=== PATIENT | male | born 1950 | race Caucasian/White ===

== ENCOUNTER 2016-04-19 08:54 | Day surgery (SDC) | payer MEDICARE, OTHER ==
[2016-04-19] VITALS (19 sets, daily range): BP systolic 125–152; BP diastolic 59–93; PULSE 79–106; RESP 16–24; Ht 180.3 cm; Wt 94.4 kg
[~2016-04-19] VITALS: Ht 180.3 cm; Wt 94.4 kg
[~2016-04-19 08:54] MED LIST: DEXAMETHASONE 4 MG/ML 1 ML INJ ONE; FENTAnyl 50 MCG/ML VIAL ONE; GLYCOPYRROLATE 0.4 MG INJ ONE; LIDOCAINE 2% (SDV) 5 ML INJ ONE; MIDAZOLAM 1 MG/ML 2 ML INJ ONE; NEOSTIGMINE 3 MG/3 ML SYRINGE ONE; ONDANSETRON 4 MG INJ ONE; PROPOFOL 20 ML ONE; ROCURONIUM 50 MG INJ ONE
[2016-04-19] MEDS ORDERED: hydrALAzine 20 MG INJ IV PRN (09:00)
[2016-04-19] MEDS ORDERED: MIDAZOLAM 1 MG/ML 2 ML INJ IV PRN (09:00)
[2016-04-19] MEDS ORDERED: LABETALOL HCL 20MG INJ IV PRN (09:00)
[2016-04-19] MEDS ORDERED: HYDROmorphONE (0.2 MG/ML) 10ML SYG IV PRN ×3 (09:00)
[2016-04-19] MEDS ORDERED: EPHEDrine SULFATE 50 MG/5 ML SYG IV PRN (09:00)
[2016-04-19] MEDS ORDERED: DIPHENHYDRAMINE 50 MG INJ IV PRN (09:00)
[2016-04-19] MEDS ORDERED: FENTAnyl 50 MCG/ML VIAL IV PRN ×2 (09:00)
[2016-04-19] MEDS ORDERED: MEPERIDINE 25 MG INJ IV PRN (09:00)
[2016-04-19] MEDS ORDERED: OXYCODONE/ACETAMINOPHEN (5/325) TAB PO PRN ×2 (09:00)
[2016-04-19] MEDS ORDERED: ATROPINE 1 MG/10 ML SYRINGE IV PRN (09:00)
[2016-04-19] MEDS ORDERED: ONDANSETRON 4 MG INJ IV PRN ×2 (09:00→16:30)
[2016-04-19] MEDS ORDERED: morphine (1 MG/ML) 10ML SYRINGE IV PRN ×3 (09:00)
[2016-04-19] MEDS ORDERED: ROPIVACAINE 0.5 % 30 ML VIAL ONE ×2 (10:08→12:17)
[2016-04-19] MEDS ORDERED: LIDOCAINE 2%/EPI 30 ML INJ ONE (10:08)
[2016-04-19 10:37] LABS: ADD SCAN DIFF NO
[2016-04-19] MEDS ORDERED: ATOR40TA68 PO (10:42)
[2016-04-19] MEDS ORDERED: VALS1TAB76 PO (10:42)
[2016-04-19 10:50] LABS: ADD UMIC NO; URINE BILIRUBIN (Dip) NEGATIVE (NEGATIVE); URINE BLOOD (Dip) NEGATIVE (NEGATIVE); URINE COLOR LT. YELLOW (YELLOW); URINE GLUCOSE (Dip) NEGATIVE (NEGATIVE); URINE KETONES (Dip) NEGATIVE (NEGATIVE); URINE LEUKOCYTE ESTERASE (Dip) NEGATIVE (NEGATIVE); URINE NITRITE (Dip) NEGATIVE (NEGATIVE); URINE TOTAL PROTEIN (Dip) NEGATIVE (NEGATIVE); URINE UROBILINOGEN (Dip) 0.2 E.U./dL (0.1-1.0)
[2016-04-19 10:51] LABS: BASOPHILS % 0.9 % (0.0-2.0); EOSINOPHILS # 0.1 10^3/ul (0.0-0.5); EOSINOPHILS % 1.1 % (0.0-7.0); HEMATOCRIT 44.6 % (42.0-52.0); HEMOGLOBIN 14.9 g/dl (14.0-18.0); LYMPHOCYTES # 1.5 10^3/ul (0.8-2.9); LYMPHOCYTES % 33.7 % (15.0-51.0); MEAN CORPUSCULAR HEMOGLOBIN 31.8 pg (29.0-33.0); MEAN CORPUSCULAR HGB CONC 33.4 g/dl (32.0-37.0); MEAN CORPUSCULAR VOLUME 95.3 fl (82.0-101.0); MEAN PLATELET VOLUME 10.8 fl (7.4-10.4); MONOCYTE # 0.5 10^3/ul (0.3-0.9); MONOCYTES % 11.2 % (0.0-11.0); NEUTROPHIL # 2.4 10^3/ul (1.6-7.5); NEUTROPHILS % 52.9 % (39.0-77.0); PLATELET COUNT 246 10^3/UL (140-415); RED BLOOD COUNT 4.68 10^6/ul (4.70-6.10); RED CELL DISTRIBUTION WIDTH 12.4 % (11.5-14.5); WHITE BLOOD COUNT 4.5 10^3/ul (4.8-10.8)
[2016-04-19 11:16] LABS: ALBUMIN 4.4 g/dl (3.3-4.9)
--- NOTE | 2016-04-19 11:16 | HPN ---
Date/Time of Note Date/Time of Note DATE: 04/19/16 TIME: 11:16 Interval H&P Admission Note Pt. seen H&P reviewed: No system changes JACOB YOUSIF MD Apr 19, 2016 11:16
[2016-04-19 11:19] LABS: ALBUMIN/GLOBULIN RATIO 1.57; BILIRUBIN,INDIRECT 0.3 mg/dl (0-1.1); BILIRUBIN,TOTAL 0.3 mg/dl (0.2-1.3); CALCIUM 9.7 mg/dl (8.4-10.2); CREATININE 0.76 mg/dl (0.61-1.24); TOTAL PROTEIN 7.2 g/dl (6.1-8.1)
[2016-04-19] MEDS ORDERED: POVIDONE IODINE 10% 28.4 GM OINT ONE (12:18)
[2016-04-19] MEDS ORDERED: LABETALOL HCL 20MG INJ ONE (12:34)
[2016-04-19] MEDS ORDERED: THROMBIN 5000 UNIT VIAL ONE (12:39)
[2016-04-19] MEDS ORDERED: CA CHLORIDE 10% 10 ML SYRINGE ONE (12:39)
[2016-04-19] MEDS ORDERED: POLYMYXIN/BACITRACIN 1L IRRIG IRR ONE (13:20)
[2016-04-19] MEDS ORDERED: CEFAZOLIN 1 GM INJ IV SCH (16:30)
[2016-04-19] MEDS ORDERED: DIPHENHYDRAMINE 25 MG CAP PO PRN (16:30)
[2016-04-19] MEDS ORDERED: morphine 10 MG INJ IV PRN (16:30)
[2016-04-19] MEDS ORDERED: BISACODYL 10 MG SUPP PR PRN (16:30)
[2016-04-19] MEDS ORDERED: HYDROmorphONE 0.2 MG/ML PCA IV SCH (16:30)
[2016-04-19] MEDS ORDERED: CEPASTAT LOZENGE MT PRN (17:30)
--- NOTE | 2016-04-19 17:35 | RADRPT ---
PROCEDURE: Intraoperative imaging of the left ankle with fluoroscopy. CLINICAL INDICATION: Left ankle pain. Intraoperative. TECHNIQUE: 8 images of the left ankle were obtained in the operating room with an image intensifie r. No radiologist was in attendance. 0.5 minutes of fluoroscopy time was used. COMPARISON: No prior study is available for comparison. FINDINGS: Images demonstrate fusion of the tibiotalar joint with 3 large cannulated screws. IMPRESSION: 1. Intraoperative imaging of the left ankle. RPTAT: QQ .Dusty Braldey MD, MD Date Time Electronically viewed and signed by .Dusty Bradley MD, on 04/19/2016 17:35 .R/
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
--- NOTE | 2016-04-19 19:39 | OPR ---
DATE OF OPERATION: 04/19/2016 PREOPERATIVE DIAGNOSIS: Severe degenerative arthritis, left ankle. POSTOPERATIVE DIAGNOSIS: Severe degenerative arthritis, left ankle. NAME OF THE OPERATION: 1. Arthroscopy, left ankle, with soft tissue distraction. 2. Extensive debridement, removal of all arthritic cartilage, bone spurs, and synovitis. 3. Insertion of platelet rich plasma and Ignite into the ankle fusion site to facilitate healing. 4. Arthrodesis of the left ankle with three 7.3 AO cannulated screws. 5. Use of fluoroscopy to verify position and alignment of guide pins and screws and ankle position. 6. Short-leg cast. SURGEON: Jacob Garrido MD RAILROAD PASSENGER AGENT: Herbert Bennett MD ANESTHESIA: General with popliteal block. TOURNIQUET TIME: 145 minutes. DESCRIPTION OF PROCEDURE: The patient taken to the operating room and placed in supine position. S atisfactory general anesthesia was administered after popliteal block was given, 2 grams Ancef given intravenously. Left thigh secured in the thigh marion. Arms were carefully padded. The left leg was prepped and draped in usual manner. Superficial peroneal nerve was marked out. Standard arley medial, anterolateral, and posterolateral portals were used, using extreme caution to avoid injury t o neurovascular structures. We had previously gone in in his ankle then multiple biopsies. Culture s were all negative for infection. The bone was quite soft. Cartilage was absent in the majority o f the ankle, scattered throughout the ankle. Synovitis and scar tissue was removed with a shaver an teriorly, medially, laterally, and along the distal tibia, then along the posterior ankle. Curettes and shaver were used to remove all arthritic cartilage down to good bleeding bone. A bur was used to remove approximately 1 mm of bone off the talus until there was better looking bone that would bl eed better. Then multiple "spot welds" were placed to facilitate bleeding and healing. The same th ing was done on the tibia. All the articular cartilage was removed. Bone was removed with a bur 1 mm in depth and then multiple spot welds were made. Multiple drill holes were made in the tibia and the talus with 0.062 K-wire. Good bleeding was seen. Using the 70 degree arthroscope the medial a nd lateral gutters were cleaned of all articular cartilage. The area burred and spot welded on both sides. Finally, the posterior portal was used to remove the posterior aspect of the talus and tibi a until all the bone was exposed and bone was burred and spot welded. The fluoroscope was brought in. The Micro Vector was inserted through the anteromedial portal. A s mall incision was marked on the skin. Dissection carried down to subcutaneous tissue. Saphenous ne rve and vein were elevated superiorly. The Micro Vector was taken down the bone, angled in appropri ate direction. Guide pin was inserted from the 7.3 AO cannulated screw set, was checked in the AP p sarina and looked good. Guide pin was then placed through the anterolateral portal. The skin was mar ked along the posterior lateral aspect of the fibula. Incision made along the posterolateral aspect of the fibula. The peroneal sheath was opened and the peroneal tendons were retracted. The Micro Vector was then inserted along the posterior groove of the posterolateral fibula. The guide pin was inserted in appropriate direction. Both pins were checked in AP and lateral planes and adjusted so they were perfect. All the wounds were closed at the portals with 3-0 black nylon except for the a nterolateral portal wounds where sutures were placed, but not tied. Blood 60 mL was aspirated previ ously sterilely from the arm, was centrifuged, and then mixed with Ignite demineralized bone marrow. It was inserted in the syringe and then injected throughout the ankle. The sutures were then tied so that none of it leaked out. The ankle was taken out of distraction, placed in neutral dorsi and plantar flexion, 5 degrees of valgus and the medial pin was advanced. Good position was seen in AP and lateral planes skin. The guide pin was measured, partially drilled. The bone was soft. We us ed a washer and 7.3 AO cannulated screw. Good fixation was obtained but not quite as good as you wo uld see in very hard bone. Guide pin was placed from the lateral portal across the joint, checked i n AP and lateral positions, partially drilled, and then a screw inserted without a washer. Excellen t fixation was obtained. A third pin was placed superior to the last one on the fibula, but more po sterior. It was partially drilled, depth checked, and then the screw inserted. When we were done, there was absolutely no motion under fluoroscopy of the ankle joint. Position and alignment were sa tisfactory. Final fluoroscopic view showed good position and alignment of the screws with no violat ion of the subtalar joint. The tourniquet was released, bleeders were coagulated, wounds irrigated repeatedly with antibiotic solution. The deep tissues were closed on the peroneal tendon sheath wit h a running 2-0 PDS and then 3-0 undyed Vicryl and 4-0 black nylon. The medial wound was closed wit h 2-0 and 3-0 undyed Vicryl, and 4-0 black nylon. Saphenous nerve block done with 0.5% ropivacaine. Compression dressing was applied as well as short-leg cast in neutral position. Interprocedure sp onge and needle count was correct. The patient tolerated procedure well and was taken to recovery r oom the cast was split in the recovery room. Dictated By: JACOB DONIS/CINTHIA Conf#: [id number] DID#: [id number]
[2016-04-19] MEDS: CEFAZOLIN 2 GM/50 ML (PMX) 50 ML IVPB SCH (19:49)
[2016-04-19] MEDS: SOD CHLORIDE 0.9% 1,000 ML IV SCH (19:49)
[2016-04-19] MEDS: SENNA/DOCUSATE NA (8.6MG/50MG) TAB PO SCH (20:10)
[2016-04-19] MEDS ORDERED: ATORVASTATIN 40 MG TAB PO SCH (21:00)
[2016-04-20 00:28] VITALS: BP 107/60; RESP 19
[2016-04-20] MEDS: SOD CHLORIDE 0.9% 1,000 ML IV SCH ×2 (02:18→07:10)
[2016-04-20] MEDS: CEFAZOLIN 2 GM/50 ML (PMX) 50 ML IVPB SCH ×2 (04:02→11:26)
[2016-04-20 04:14] VITALS: BP 127/69; PULSE 93; RESP 17
[2016-04-20 05:04] LABS: ADD SCAN DIFF NO
[2016-04-20 05:14] LABS: BASOPHILS % 0.1 % (0.0-2.0); HEMATOCRIT 38.5 % (42.0-52.0); LYMPHOCYTES % 10.3 % (15.0-51.0); MEAN CORPUSCULAR HEMOGLOBIN 32.8 pg (29.0-33.0); MEAN CORPUSCULAR HGB CONC 33.8 g/dl (32.0-37.0); MEAN CORPUSCULAR VOLUME 97.2 fl (82.0-101.0); MEAN PLATELET VOLUME 10.9 fl (7.4-10.4); MONOCYTE # 0.7 10^3/ul (0.3-0.9); MONOCYTES % 6.8 % (0.0-11.0); NEUTROPHIL # 8.2 10^3/ul (1.6-7.5); NEUTROPHILS % 82.4 % (39.0-77.0); PLATELET COUNT 230 10^3/UL (140-415); RED BLOOD COUNT 3.96 10^6/ul (4.70-6.10); RED CELL DISTRIBUTION WIDTH 12.5 % (11.5-14.5); WHITE BLOOD COUNT 9.9 10^3/ul (4.8-10.8)
[2016-04-20 05:35] LABS: ALBUMIN 3.7 g/dl (3.3-4.9)
[2016-04-20 05:36] LABS: POTASSIUM 4.2 mmol/L (3.5-5.1)
[2016-04-20 05:38] LABS: ALBUMIN/GLOBULIN RATIO 1.08; BILIRUBIN,INDIRECT 0.3 mg/dl (0-1.1); BILIRUBIN,TOTAL 0.3 mg/dl (0.2-1.3); CREATININE 0.66 mg/dl (0.61-1.24); TOTAL PROTEIN 7.1 g/dl (6.1-8.1)
--- NOTE | 2016-04-20 07:10 | PN ---
Date/Time of Note Date/Time of Note DATE: 04/20/16 TIME: 07:07 Assessment/Plan VTE Prophylaxis VTE Prophylaxis Intervention: ambulation, SCD's, other Lines/Catheters IV Catheter Type (from Nrsg): Peripheral IV Urinary Cath still in place: No Assessment/Plan Assessment/Plan POD#1 s/p L arthroscopic ankle fusion - Pain control - encourage PO meds - Advance diet as rc - PT this am - NWB LLE - elevate LLE as much as possible - Xarelto today, SCDs for DVT ppx - 24 hr abx - Dispo: May leave this afternoon at earliest if pt comfortable and cleared by medicine and PT. anticipate d/c to home today vs tomorrow Subjective 24 Hr Interval Summary Free Text/Dictation Doing well. Pain controlled. Block wearing off. Exam/Review of Systems Vital Signs Vitals Vital Signs Date Time Temp Pulse Resp B/P Pulse Ox O2 Delivery O2 Flow Rate FiO2 04/20/16 05:05 18 04/20/16 04:14 98.4 93 127/69 98 Nasal Cannula 2.0 Intake and Output 04/19/16 04/19/16 04/20/16 15:00 23:00 07:00 Intake Total 2170 ml 1400 ml Output Total 100 ml 1300 ml Balance 2070 ml 100 ml Exam Hgb 13 (14.9). NAD LLE: elevated. some blood on posterolateral cast. cast intact. can wiggle exposed toes, some parasthesias to light touch still. [facility] Results Result Diagram: 04/20/16 0415 04/20/16 0415 Results 24 hrs Laboratory Tests Test 04/19/16 10:10 04/20/16 04:15 Alanine Aminotransferase (ALT/SGPT) 46 40 Albumin 4.4 3.7 Albumin/Globulin Ratio 1.57 1.08 Alkaline Phosphatase 81 62 Anion Gap 16 14 Aspartate Amino Transf (AST/SGOT) 37 26 Basophils # 0.0 0.0 Basophils % 0.9 0.1 Blood Urea Nitrogen 9 7 Calcium Level 9.7 9.0 Carbon Dioxide Level 29 28 Chloride Level 103 104 Creatinine 0.76 0.66 Direct Bilirubin 0.00 0.00 Eosinophils # 0.1 0.0 Eosinophils % 1.1 0.0 Globulin 2.80 3.40 H Glucose Level 103 119 Hematocrit 44.6 38.5 L Hemoglobin 14.9 13.0 L Indirect Bilirubin 0.3 0.3 Lymphocytes # 1.5 1.0 Lymphocytes % 33.7 10.3 L Mean Corpuscular Hemoglobin 31.8 32.8 Mean Corpuscular Hemoglobin Concent 33.4 33.8 Mean Corpuscular Volume 95.3 97.2 Mean Platelet Volume 10.8 H 10.9 H Monocytes # 0.5 0.7 Monocytes % 11.2 H 6.8 Neutrophils # 2.4 8.2 H Neutrophils % 52.9 82.4 H Nucleated Red Blood Cells # 0.0 0.0 Nucleated Red Blood Cells % 0.0 0.0 Platelet Count 246 230 Potassium Level 4.0 4.2 Red Blood Count 4.68 L 3.96 L Red Cell Distribution Width 12.4 12.5 Sodium Level 144 142 Total Bilirubin 0.3 0.3 Total Protein 7.2 7.1 Urine Bilirubin NEGATIVE Urine Clarity CLEAR Urine Color LT. YELLOW Urine Glucose NEGATIVE Urine Hemoglobin NEGATIVE Urine Ketones NEGATIVE Urine Leukocyte Esterase NEGATIVE Urine Nitrite NEGATIVE Urine Specific [place] 1.010 Urine Total Protein NEGATIVE Urine Urobilinogen 0.2 E.U./dL Urine pH 6.0 White Blood Count 4.5 L 9.9 # Medications Medications Current Medications Senna/Docusate Sodium (Senokot-S) 1 tab BID PO Last administered on 04/19/16 20:10; Admin Dose 1 TAB; Start 04/19/16 at 21:00 Magnesium Hydroxide (Milk Of Mag) 30 ml HS PO ; Start 04/21/16 at 21:00 Bisacodyl 10 mg 10 mg DAILY PRN DE CONSTIPATION; Start 04/19/16 at 16:30 Sodium Chloride (NS) 1,000 ml @ 100 mls/hr Q10H IV Last administered on 19:49; Admin Dose 100 MLS/HR; Start 04/19/16 at 16:18 Oxycodone/ Acetaminophen (Percocet (5/ 325)) 2 tab Q4H PRN PO PAIN; Start 04/19 at 16:30 Morphine Sulfate (morphine) 5 mg Q4H PRN IV PAIN LEVEL 7-10; Start 04/19/16 at 16:30 Ondansetron HCl (Zofran Inj) 4 mg Q4H PRN IV NAUSEA AND/OR VOMITING; Start 2/ 27/17 at 16:30 Diphenhydramine HCl (Benadryl) 25 mg Q4H PRN PO ITCHING; Start 04/19/16 at 16: 30 Hydromorphone HCl (Dilaudid [employer]) 0.2 mg Q4PCA IV Last administered on 16:59; Admin Dose 6 MG; Start 04/19/16 at 16:30 Atorvastatin Calcium (Lipitor) 40 mg QHS PO Last administered on 04/19/16 20: 10; Admin Dose 40 MG; Start 04/19/16 at 21:00 Valsartan (Diovan) 160 mg DAILY PO ; Start 04/20/16 at 09:00 Clonidine (Catapres) 0.1 mg Q6H PRN PO ELEVATED BLOOD PRESSURE; Start 04/19/16 at 17:30 Phenol 1 lozenge 1 lozenge Q1H PRN MT PAIN Last administered on 04/19/16 18:55 ; Admin Dose 1 LOZENGE; Start 04/19/16 at 17:30 Cefazolin Sodium/ Dextrose (Ancef 2 Gm/50 ml (Pmx)) 50 ml @ 100 mls/hr Q8H IVPB Last administered on 04/20/16 04:02; Admin Dose 100 MLS/HR; Start at 20:00; Stop 04/21/16 at 08:31 JACOB YOUSIF MD Apr 20, 2016 07:10
[2016-04-20 08:02] VITALS: BP 143/67; RESP 16
[2016-04-20] MEDS: SENNA/DOCUSATE NA (8.6MG/50MG) TAB PO SCH (08:24)
[2016-04-20] MEDS: OXYCODONE/ACETAMINOPHEN (5/325) TAB PO PRN ×2 (08:25→12:56)
[2016-04-20] MEDS ORDERED: VALSARTAN 160 MG TAB PO SCH (09:00)
--- NOTE | 2016-04-20 13:24 | CONS ---
Date/Time of Note Date/Time of Note DATE: 04/20/16 TIME: 13:20 Assessment/Plan Assessment/Plan Chief Complaint/Hosp Course 1. He is one day post op a L ankle fusion . he is doing well . 2. He can be discharged to home today . He will continue his routine medication . Problems: Consultation Date/Type/Reason Admit Date/Time Initial Consult Date 24 HR Interval Summary Free Text/Dictation He is 1 day post op a L ankle fusion . He is awake and feels well . Constitutional: improved, no complaints Exam/Review of Systems Vital Signs Vitals Vital Signs Date Time Temp Pulse Resp B/P Pulse Ox O2 Delivery O2 Flow Rate FiO2 04/20/16 09:00 18 04/20/16 08:02 97.7 94 143/67 94 04/20/16 04:14 Nasal Cannula 2.0 Intake and Output 04/19/16 04/19/16 04/20/16 15:00 23:00 07:00 Intake Total 2170 ml 1400 ml Output Total 100 ml 1300 ml Balance 2070 ml 100 ml Exam L ankle and foot in a large cast Constitutional: alert, oriented, well developed Psych: nl mood/affect, no complaints Respiratory: clear to auscultation, normal air movement Cardiovascular: nl pulses, regular rate and rhythm Gastrointestinal: nl liver, spleen, non-tender, soft Results Result Diagram: 04/20/16 0415 04/20/16 0415 Results 24 hrs Laboratory Tests Test 04/20/16 04:15 Alanine Aminotransferase (ALT/SGPT) 40 Albumin 3.7 Albumin/Globulin Ratio 1.08 Alkaline Phosphatase 62 Anion Gap 14 Aspartate Amino Transf (AST/SGOT) 26 Basophils # 0.0 Basophils % 0.1 Blood Urea Nitrogen 7 Calcium Level 9.0 Carbon Dioxide Level 28 Chloride Level 104 Creatinine 0.66 Direct Bilirubin 0.00 Eosinophils # 0.0 Eosinophils % 0.0 Globulin 3.40 H Glucose Level 119 Hematocrit 38.5 L Hemoglobin 13.0 L Indirect Bilirubin 0.3 Lymphocytes # 1.0 Lymphocytes % 10.3 L Mean Corpuscular Hemoglobin 32.8 Mean Corpuscular Hemoglobin Concent 33.8 Mean Corpuscular Volume 97.2 Mean Platelet Volume 10.9 H Monocytes # 0.7 Monocytes % 6.8 Neutrophils # 8.2 H Neutrophils % 82.4 H Nucleated Red Blood Cells # 0.0 Nucleated Red Blood Cells % 0.0 Platelet Count 230 Potassium Level 4.2 Red Blood Count 3.96 L Red Cell Distribution Width 12.5 Sodium Level 142 Total Bilirubin 0.3 Total Protein 7.1 White Blood Count 9.9 # Medications Medications Current Medications Senna/Docusate Sodium (Senokot-S) 1 tab BID PO Last administered on 04/20/16 08:24; Admin Dose 1 TAB; Start 04/19/16 at 21:00 Magnesium Hydroxide (Milk Of Mag) 30 ml HS PO ; Start 04/21/16 at 21:00 Bisacodyl 10 mg 10 mg DAILY PRN OR CONSTIPATION; Start 04/19/16 at 16:30 Sodium Chloride (NS) 1,000 ml @ 100 mls/hr Q10H IV Last administered on 07:10; Admin Dose 100 MLS/HR; Start 04/19/16 at 16:18 Oxycodone/ Acetaminophen (Percocet (5/ 325)) 2 tab Q4H PRN PO PAIN Last administered on 04/20/16 12:56; Admin Dose 1 TAB; Start 04/19/16 at 16:30 Morphine Sulfate (morphine) 5 mg Q4H PRN IV PAIN LEVEL 7-10; Start 04/19/16 at 16:30 Ondansetron HCl (Zofran Inj) 4 mg Q4H PRN IV NAUSEA AND/OR VOMITING; Start at 16:30 Diphenhydramine HCl (Benadryl) 25 mg Q4H PRN PO ITCHING; Start 04/19/16 at 16: 30 Hydromorphone HCl (Dilaudid [employer]) 0.2 mg Q4PCA IV Last administered on 16:59; Admin Dose 6 MG; Start 04/19/16 at 16:30 Atorvastatin Calcium (Lipitor) 40 mg QHS PO Last administered on 04/19/16 20: 10; Admin Dose 40 MG; Start 04/19/16 at 21:00 Valsartan (Diovan) 160 mg DAILY PO Last administered on 04/20/16 08:24; Admin Dose 160 MG; Start 04/20/16 at 09:00 Clonidine (Catapres) 0.1 mg Q6H PRN PO ELEVATED BLOOD PRESSURE; Start 04/19/16 at 17:30 Phenol 1 lozenge 1 lozenge Q1H PRN MT PAIN Last administered on 04/19/16 18:55 ; Admin Dose 1 LOZENGE; Start 04/19/16 at 17:30 Cefazolin Sodium/ Dextrose (Ancef 2 Gm/50 ml (Pmx)) 50 ml @ 100 mls/hr Q8H IVPB Last administered on 04/20/16 11:26; Admin Dose 100 MLS/HR; Start at 20:00; Stop 04/21/16 at 08:31 KIET GALLARDO MD Apr 20, 2016 13:24
--- NOTE | 2016-04-20 13:24 | CONS ---
Date/Time of Note Date/Time of Note DATE: 04/20/16 TIME: 13:24 Assessment/Plan Assessment/Plan Chief Complaint/Hosp Course 1. He is one day post op a L ankle fusion . he is doing well . 2. He can be discharged to home today . He will continue his routine medication . Problems: Consultation Date/Type/Reason Admit Date/Time Exam/Review of Systems Vital Signs Vitals Vital Signs Date Time Temp Pulse Resp B/P Pulse Ox O2 Delivery O2 Flow Rate FiO2 04/20/16 09:00 18 04/20/16 08:02 97.7 94 143/67 94 04/20/16 04:14 Nasal Cannula 2.0 Intake and Output 04/19/16 04/19/16 04/20/16 15:00 23:00 07:00 Intake Total 2170 ml 1400 ml Output Total 100 ml 1300 ml Balance 2070 ml 100 ml Results Result Diagram: 04/20/16 0415 04/20/16 0415 Results 24 hrs Laboratory Tests Test 04/20/16 04:15 Alanine Aminotransferase (ALT/SGPT) 40 Albumin 3.7 Albumin/Globulin Ratio 1.08 Alkaline Phosphatase 62 Anion Gap 14 Aspartate Amino Transf (AST/SGOT) 26 Basophils # 0.0 Basophils % 0.1 Blood Urea Nitrogen 7 Calcium Level 9.0 Carbon Dioxide Level 28 Chloride Level 104 Creatinine 0.66 Direct Bilirubin 0.00 Eosinophils # 0.0 Eosinophils % 0.0 Globulin 3.40 H Glucose Level 119 Hematocrit 38.5 L Hemoglobin 13.0 L Indirect Bilirubin 0.3 Lymphocytes # 1.0 Lymphocytes % 10.3 L Mean Corpuscular Hemoglobin 32.8 Mean Corpuscular Hemoglobin Concent 33.8 Mean Corpuscular Volume 97.2 Mean Platelet Volume 10.9 H Monocytes # 0.7 Monocytes % 6.8 Neutrophils # 8.2 H Neutrophils % 82.4 H Nucleated Red Blood Cells # 0.0 Nucleated Red Blood Cells % 0.0 Platelet Count 230 Potassium Level 4.2 Red Blood Count 3.96 L Red Cell Distribution Width 12.5 Sodium Level 142 Total Bilirubin 0.3 Total Protein 7.1 White Blood Count 9.9 # Medications Medications Current Medications Senna/Docusate Sodium (Senokot-S) 1 tab BID PO Last administered on 04/20/16t 08:24; Admin Dose 1 TAB; Start 04/19/16 at 21:00 Magnesium Hydroxide (Milk Of Mag) 30 ml HS PO ; Start 04/21/16 at 21:00 Bisacodyl 10 mg 10 mg DAILY PRN [place] CONSTIPATION; Start 04/19/16 at 16:30 Sodium Chloride (NS) 1,000 ml @ 100 mls/hr Q10H IV Last administered on 07:10; Admin Dose 100 MLS/HR; Start 04/19/16 at 16:18 Oxycodone/ Acetaminophen (Percocet (5/ 325)) 2 tab Q4H PRN PO PAIN Last administered on 04/20/16 12:56; Admin Dose 1 TAB; Start 04/19/16 at 16:30 Morphine Sulfate (morphine) 5 mg Q4H PRN IV PAIN LEVEL 7-10; Start 04/19/16 at 16:30 Ondansetron HCl (Zofran Inj) 4 mg Q4H PRN IV NAUSEA AND/OR VOMITING; Start at 16:30 Diphenhydramine HCl (Benadryl) 25 mg Q4H PRN PO ITCHING; Start 04/19/16 at 16: 30 Hydromorphone HCl (Dilaudid [employer]) 0.2 mg Q4PCA IV Last administered on 16:59; Admin Dose 6 MG; Start 04/19/16 at 16:30 Atorvastatin Calcium (Lipitor) 40 mg QHS PO Last administered on 04/19/16 20: 10; Admin Dose 40 MG; Start 04/19/16 at 21:00 Valsartan (Diovan) 160 mg DAILY PO Last administered on 04/20/16 08:24; Admin Dose 160 MG; Start 04/20/16 at 09:00 Clonidine (Catapres) 0.1 mg Q6H PRN PO ELEVATED BLOOD PRESSURE; Start 04/19/16 at 17:30 Phenol 1 lozenge 1 lozenge Q1H PRN MT PAIN Last administered on 04/19/16 18:55 ; Admin Dose 1 LOZENGE; Start 04/19/16 at 17:30 Cefazolin Sodium/ Dextrose (Ancef 2 Gm/50 ml (Pmx)) 50 ml @ 100 mls/hr Q8H IVPB Last administered on 04/20/16 11:26; Admin Dose 100 MLS/HR; Start at 20:00; Stop 04/21/16 at 08:31 KIET GALLARDO MD Apr 20, 2016 13:24
--- NOTE | 2016-04-20 13:26 | PDOCDIS ---
Discharge Instructions CONDITION Patient Condition: Good HOME CARE INSTRUCTIONS: Diet Instructions: Reduced SodiumSpecial Diet: REGULAR ACTIVITY: Activity Restrictions: Slowly Increase Activity Rest between Activity Avoid heavy lifting Do not Drive Avoid Heavy Housework Bathing Restrictions: KIET Alarcon MD Apr 20, 2016 13:26
[2016-04-20] MEDS ORDERED: RIVA10TA PO (13:28)
[2016-04-20] MEDS ORDERED: RIVAROXABAN 10 MG TABLET PO SCH (17:55)
--- NOTE | 2016-04-21 00:39 | OPR ---
DATE OF OPERATION: 04/19/2016 ADDENDUM DRAGGER ORTHOPEDIC SURGEON: During the procedure, an [employer] assistant manager orthopedic surgeon was used at my request. The [employer] assistant manager helped with distraction of the ankle, manipulation of the arthroscope, and m ost importantly, the [employer] assistant manager inserted the screws into the ankle while I held the ankle reduced. Marie moreau a skilled orthopedic surgeon assisting me, this could not have been performed. Therefore, he should be compensated appropriately. Dictated By: JACOB DONIS/CINTHIA Conf#: [id number] DID#: [id number]
--- NOTE | 2016-04-21 01:00 | DS ---
DATE OF ADMISSION: 04/19/2016 DATE OF DISCHARGE: 04/20/2016 DISCHARGE DIAGNOSIS: Severe degenerative arthritis of left ankle. SURGERY: On April 19, arthroscopy left ankle, extensive debridement, insertion of PRP and Ignite and arthrodesis with 3 screws. HISTORY OF PRESENT ILLNESS: The patient is a 65-year-old male with a long history of pain in his le ft ankle. Workup reveals severe arthritic degenerative arthritis, admitted now for surgery. PAST MEDICAL HISTORY: See the history and physical record. PHYSICAL EXAMINATION: Normal except the orthopedic exam revealed diffuse pain about the ankle with decreased range of motion and strength. Laboratory was normal. Chest x-ray was clear. EKG was stable. HOSPITAL COURSE: Patient was cleared medically. He was taken to the operating room and underwent a lilian-mentioned procedure. Postoperatively, he was up ambulating, nonweightbearing the first postope rative day and will be discharged on pain medications and antibiotics, to be followed in the office in 1 week. Dictated By: JACOB DONIS/CINTHIA Conf#: [id number] DID#: [id number]
[2016-04-21] MEDS ORDERED: MAGNESIUM HYDROXIDE 30ML CUP PO SCH (21:00)
== END 2016-04-20 14:40 | disposition home or self-care (01) ==
LOC: SDS 08:54 → MS1 17:40 → SDS 04-20 14:40
PROVIDERS: ATTEND Orthopaedic Surgery
DX: M19.072 Primary osteoarthritis, left ankle and foot (principal)
CPT/HCPCS: 29898; 29899; 73610; 80053; 81003; 85025; 86999; 97116; 97163; 97530; C1713; J0690; J1100; J1170; J2250; J2405; J2710; J2795; J3010; J7030